=== PATIENT | male | born 1930 | race Caucasian/White ===

== ENCOUNTER 2017-03-13 09:19 | Emergency (ER) | payer OTHER ==
[~2017-03-13] VITALS: Wt 89.0 kg
[2017-03-13] MEDS ORDERED: NITR-58 PO (10:39)
[2017-03-13] MEDS ORDERED: CIPR500T4 PO (10:39)
--- NOTE | 2017-03-13 10:43 | ERD ---
ER Documentation Chief Complaint Date/Time DATE: 03/13/17 TIME: 10:41 Chief Complaint URINARY CATH PULLED OUT AT HOME HPI This pleasant 86-year-old male who pulled out his Rios catheter on accident this morning. Has an indwelling Rios. He was admitted to [facility] about 10 days ago for a UTI. He just finished his antibiotics 4 days ago. The family says his urine has been clear since. The patient was peeling around his Rios catheter yesterday had a home health nurse come out to put a new Rios. Usually has a leg bag however this time he did not use a leg bag. The catheter bag was attached to his walker and apparently he was using his walker and walked away from it in the catheter bag was attached to the walker and he ended up pulling the Rios out. He had a bunch of blood around his groin area and from the urethra. But no pain. ROS All systems reviewed and are negative except as per history of present illness. Medications Home Meds Active Scripts Ciprofloxacin Hcl* (Ciprofloxacin Hcl*) 500 Mg Tablet, 500 MG PO BID for 7 Days , TAB Prov:ALE VELASCO DO 03/13/17 Nitrofurantoin Monohyd Macrocr* (Macrobid*) 100 Mg Capsr, 100 MG PO HS for 7 Days, CAP Prov:ALE VELASCO DO 03/13/17 Allergies Allergies: Coded Allergies: No Known Allergy (Unverified , 03/13/17) PMhx/Soc History of Surgery: Yes (PROSTATE) Anesthesia Reaction: No Hx Neurological Disorder: No Hx Respiratory Disorders: No Hx Cardiac Disorders: Yes (HTN , HIGH CHOLESTEROL) Hx Psychiatric Problems: No Hx Miscellaneous Medical Probl: Yes (PROSTATE) Hx Alcohol Use: No Hx Substance Use: No Hx Tobacco Use: No Smoking Status: Never smoker FmHx Family History: No coronary disease Physical Exam Vitals Vital Signs Date Time Temp Pulse Resp B/P Pulse Ox O2 Delivery O2 Flow Rate FiO2 03/13/17 09:58 66 20 151/104 96 Room Air 03/13/17 09:28 98.9 87 18 150/124 99 Physical Exam Const: Well-developed, well-nourished Head: Atraumatic, normocephalic Eyes: Normal Conjunctiva, PERRLA, EOMI, normal sclera, no nystagmus ENT: Normal External Ears, Nose and Mouth, moist mucus membranes. Neck: Full range of motion. No meningismus, no lymphadenopathy. Resp: Clear to auscultation bilaterally, no wheezing, rhonchi, rales Cardio: Regular rate and rhythm, no murmurs, S1 S2 present Abd: Soft, non tender x 4, non distended. Normal bowel sounds, no guarding or rebound, no pulsitile abdominal masses or bruits, dry blood at urethral meatus Skin: No petechiae or rashes, no ecchymosis , no maculopapular rash Back: No midline or flank tenderness Ext: No cyanosis, or edema, FROM x 4, normal inspection, neurovascularly intact x 4 Neur: Awake and alert, STR 5/5 x 4, sensation intact x 4, no focal findings, cerebellum intact Psych: Normal Mood and Affect Procedures/MDM Rios catheter is placed with some slightly blood-tinged urine. No gross blood. I will send off a urine culture. Will use Macrobid and Cipro the urine does look slightly cloudy. In light of him having a recent UTI will cover him. We will use a leg bag this time Departure Diagnosis: Primary Impression: Encounter for Rios catheter replacement Additional Impression: Dislodged Rios catheter Encounter type: initial encounter Qualified Code: T83.021A - Dislodged Rios catheter, initial encounter Condition: Stable Patient Instructions: Catheter-Associated Urinary Tract Infections, Emptying and Cleaning Your Urinary Catheter Bag ALE VELASCO DO Mar 13, 2017 10:43
[2017-03-13 11:31] VITALS: BP 110/60; PULSE 66; RESP 20; TEMP 98.2
== END 2017-03-13 11:39 | disposition home or self-care (01) ==
LOC: E/R 09:19
DX: T83.021A Displacement of indwelling urethral catheter, initial encounter (principal); I10 Essential (primary) hypertension; N39.0 Urinary tract infection, site not specified; Y73.2 Prosthetic and other implants, materials and accessory gastroenterology and urology devices associated with adverse incidents
CPT/HCPCS: 87086; 99284

== ENCOUNTER 2018-04-17 23:25 | Emergency (ER) | END 2018-04-18 03:54 | disposition short-term general hospital (02) ==